=== PATIENT | male | born 1995 | race Asian ===

== ENCOUNTER 2016-11-17 17:59 | Emergency (ER) | payer OTHER ==
[~2016-11-17] VITALS: Ht 167.6 cm; Wt 73.7 kg
[2016-11-17 20:25] VITALS: BP 144/62
== END 2016-11-17 20:25 | disposition home or self-care (01) ==
LOC: ED 17:59
DX: S59.802A Other specified injuries of left elbow, initial encounter (principal); W01.0XXA Fall on same level from slipping, tripping and stumbling without subsequent striking against object, initial encounter; Y93.01 Activity, walking, marching and hiking; Y99.8 Other external cause status; Y92.098 Other place in other non-institutional residence as the place of occurrence of the external cause